=== PATIENT | male | born 1960 | race Caucasian/White ===

== ENCOUNTER 2016-04-13 08:23 | Emergency (ER) | payer OTHER, BC ==
--- NOTE | 2016-04-13 09:42 | ER Document Report ---
ED Extremity Problem, Lower - General Chief Complaint: Knee Pain Stated Complaint: LEFT KNEE PAIN Time seen by provider: 09:38 Mode of Arrival: Ambulatory Information source: Patient Notes: This is a 55-year-old man with a history of bilateral knee replacements 4 years ago (Dr. Go and aide Goff) who presents to the emergency room with left knee pain and difficulty with range of motion. 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 Patient states he started having significant pain to the left knee progressing slowly yesterday evening. Patient denies fever. He does state that it looks swollen. Allergies: None Past medical history: Diabetes, hypertension Primary care physician: Dr. Chery - [facility] Patient complains to provider of: Pain, Swelling Location: Knee Occurred: Yesterday Where: Outdoors Onset/Duration: Gradual Quality of pain: Dull Severity: Moderate Pain Level: 3 Context: Prolonged pressure on ext Recent injury: No Associated symptoms: denies: Fever, [place] a crack, [place] a pop, Sweaty Exacerbated by: Movement, Other - See the history of present illness Relieved by: Elevation, Rest - Related Data Allergies/Adverse Reactions: No Known Allergies Allergy (Verified 04/13/16 08:32) Past Medical History - General Information source: Patient - Social History Smoking Status: Current Every Day Smoker Cigarette use (# per day): Yes - half pack per day Chew tobacco use (# tins/day): No Frequency of alcohol use: Rare Drug Abuse: None Lives with: Family Family History: Reviewed & Not Pertinent Patient has suicidal ideation: No Patient has homicidal ideation: No - Past Medical History Cardiac Medical History: Reports: Hx Hypertension Pulmonary Medical History: Reports: Hx Asthma Neurological Medical History: Reports: None Endocrine Medical History: Reports: Hx Diabetes Mellitus Type 2 Renal/ Medical History: Denies: Hx Peritoneal Dialysis Past Surgical History: Reports: Hx Orthopedic Surgery - Bilateral knee replacement - Immunizations Hx Diphtheria, Pertussis, Tetanus Vaccination: Yes Review of Systems - Review of Systems Constitutional: denies: Chills, Fever EENT: No symptoms reported Cardiovascular: No symptoms reported Respiratory: No symptoms reported Gastrointestinal: No symptoms reported Genitourinary: No symptoms reported Male Genitourinary: No symptoms reported Musculoskeletal: See HPI Skin: No symptoms reported Hematologic/Lymphatic: No symptoms reported Neurological/Psychological: No symptoms reported Physical Exam - Vital signs Vitals: Temp Pulse Resp BP Pulse Ox 98.0 F 89 18 145/70 H 94 04/13/16 08:28 04/13/16 08:28 04/13/16 08:28 04/13/16 08:28 04/13/16 08:28 Notes: Physical exam: GENERAL: 55-year-old man, alert and oriented 3, no acute distress. Patient is sitting up in the stretcher. HEAD: Atraumatic, normocephalic. EYES: Pupils equal round and reactive to light, extraocular movements intact, sclera anicteric, conjunctiva are normal. ENT: Moist mucous membranes. NECK: Normal range of motion, supple EXTREMITIES: Bilateral total knee replacement scars dry and intact. The left knee is slightly swollen compared to the right knee. Patient does have decreased range of motion of the left knee secondary to pain. There is no warmth or erythema over the left knee. Patient does have a focal area of tenderness on the medial aspect of the knee joint. There is mild swelling in this area, without a fluid wave, fluctuance. Distal extremity collar is good. Distal sensation and cap refill to both lower extremities is normal. NEUROLOGICAL: Cranial nerves II through XII grossly intact. Normal speech, normal gait. PSYCH: Normal mood, normal affect. SKIN: Warm, Dry, normal turgor, no rashes or lesions noted. Course - Vital Signs Vital signs: Temp Pulse Resp BP Pulse Ox 98 F 86 18 150/69 H 95 04/13/16 11:43 04/13/16 11:43 04/13/16 11:43 04/13/16 11:43 04/13/16 11:43 - Laboratory Result Diagrams: 04/13/16 09:55 04/13/16 09:55 Laboratory results interpreted by me: 04/13/16 09:55 BUN 22 H Glucose 192 H Discharge - Discharge Clinical Impression: Strain of left knee Qualifiers: Encounter type: initial encounter Qualified Code(s): S86.912A - Strain of unspecified muscle(s) and tendon(s) at lower leg level, left leg, initial encounter Condition: Stable Disposition: HOME, SELF-CARE Instructions: Ice & Elevation ([facility]), Oral Narcotic Medication ([facility]) Additional Instructions: Note: As we discussed, follow-up with Dr. Go on Saturday: Bring a copy of today's x-rays, lab results. Return to the emergency room at once if he starts developing fever (temperature greater than 100.5), increased swelling or any redness around the joint. Continue current medicines. Continue ibuprofen every 6-8 hours for the next few days. Ice and elevation to the left knee over the next day or 2. Take Percocet as needed: This is a narcotic, see the narcotic instruction sheet. Do not operate machinery or drive while on this medicine. Additionally , they will make you constipated so take a stool softener. Prescriptions: Oxycodone HCl/Acetaminophen [Percocet 5-325 mg Tablet] 1 - 2 tab PO ASDIR PRN # 25 tablet PRN Reason:
[2016-04-13] MEDS ORDERED: KETOROLAC TROMETHAMINE 60 MG/2 ML SDV IM ONE (09:44)
[2016-04-13 10:31] LABS: ABSOLUTE BASOPHILS # (AUTO) 0.1 10^3/uL (0.0-0.2); ABSOLUTE EOSINOPHILS # (AUTO) 0.2 10^3/uL (0.0-0.6); ABSOLUTE LYMPHOCYTES (AUTO) 2.2 10^3/uL (0.5-4.7); ABSOLUTE MONOCYTES (AUTO) 0.5 10^3/uL (0.1-1.4); ABSOLUTE NEUT (AUTO) 4.5 10^3/uL (1.7-8.2); BASOPHILS % (AUTO) 1.1 % (0-2); EOSINOPHILS % (AUTO) 2.4 % (0-6); HEMATOCRIT 50.6 % (37.9-51.0); HEMOGLOBIN 16.3 g/dL (13.5-17.0); HGB HCT DIFFERENCE -1.7; LYMPHOCYTES % (AUTO) 30.3 % (13-45); MEAN CORPUSCULAR HEMOGLOBIN 29.6 pg (27.0-33.4); MEAN CORPUSCULAR HGB CONC 32.1 g/dL (32.0-36.0); MEAN CORPUSCULAR VOLUME 92 fl (80-97); MONOCYTES % (AUTO) 6.2 % (3-13); RED BLOOD COUNT 5.51 10^6/uL (4.35-5.55); RED CELL DISTRIBUTION WIDTH 13.1 % (11.5-14.0); WHITE BLOOD COUNT 7.4 10^3/uL (4.0-10.5)
[2016-04-13 10:52] LABS: BLOOD UREA NITROGEN 22 mg/dL (7-20); CALCIUM 9.4 mg/dL (8.4-10.2); CHLORIDE 102 mmol/L (98-107); GLUCOSE 192 mg/dL (75-110); POTASSIUM 4.3 mmol/L (3.6-5.0)
[2016-04-13 10:53] LABS: ALANINE AMINOTRANSFERASE 27 U/L (21-72); ALKALINE PHOSPHATASE 84 U/L (38-126); ANION GAP 13 (5-19); ASPARTATE AMINO TRANSFERASE 18 U/L (17-59); CARBON DIOXIDE 25 mmol/L (22-30); TOTAL PROTEIN 6.7 g/dL (6.3-8.2); URIC ACID 5.3 mg/dL (3.5-8.5)
[2016-04-13 11:45] VITALS: BP 150/69
== END 2016-04-13 11:45 | disposition home or self-care (01) ==
LOC: ER 08:23
DX: S86.912A Strain of unspecified muscle(s) and tendon(s) at lower leg level, left leg, initial encounter (principal); X58.XXXA Exposure to other specified factors, initial encounter; Y93.89 Activity, other specified; Y92.008 Other place in unspecified non-institutional (private) residence as the place of occurrence of the external cause; Y99.0 Civilian activity done for income or pay; M25.562 Pain in left knee; Z96.653 Presence of artificial knee joint, bilateral; I10 Essential (primary) hypertension; E11.9 Type 2 diabetes mellitus without complications; J45.909 Unspecified asthma, uncomplicated; F17.210 Nicotine dependence, cigarettes, uncomplicated
CPT/HCPCS: 99283; 96372; 36415; 84550; 85025; 80053; 73562; J1885